=== PATIENT | female | born 1945 | race African-American/Black ===

== ENCOUNTER 2020-04-17 01:45 | Observation (INO) ==
[2020-04-17] MEDS ORDERED: DEXTROSE 50% 25 GM/50 ML SYRINGE IV ONE (02:02)
[2020-04-17] MEDS ORDERED: DEXTROSE 50% 25 GM/50 ML VIAL IV STA ×2 (02:05→03:25)
[2020-04-17] MEDS ORDERED: SODIUM CHLORIDE 0.9% 500 ML IV STA (02:15)
[2020-04-17 02:26] LABS: Basophils % 0.2 % (0.0-0.8); Eosinophils # 0.2 10*3/uL (0.0-0.87); Eosinophils % 3.6 % (0.00-10.9); Hematocrit 25.2 VOL% (35.7-47.0); Hemoglobin 7.9 GM/DL (12.0-16.0); Immature Granulocytes % 0.2 %; Immature Granulocytes Absolute 0.01 #; Lymphocytes # 0.8 10*3/uL (1.4-4.0); Lymphocytes % 16.9 % (21.3-54.2); Mean Corpuscular HGB Conc 31.3 GM/DL (32-36); Mean Corpuscular Volume 88.1 FL (87-102); Mean Platelet Volume 9.8 FL (9.6-12.0); Monocytes % 14.2 % (1.7-12.7); Neutrophils % 64.9 % (38.7-73.9); Platelet Count 156 T/CUMM (130-400); Red Blood Count 2.86 MC/CUMM (3.8-5.5); Red Cell Distribution Width 14.5 % (9.3-17.3); White Blood Count 4.4 T/CUMM (4-12)
[2020-04-17] MEDS ORDERED: DEXTROSE 50% 25 GM/50 ML SYRINGE IV STA ×2 (02:45→03:27)
[2020-04-17 02:49] LABS: Alanine Aminotransferase 31 U/L (13-56); Albumin 3.4 G/DL (3.4-5.0); Alkaline Phosphatase 74 U/L (45-117); Aspartate Amino Transferase 39 U/L (0-37); Blood Urea Nitrogen 30 MG/DL (7-18); Calcium 9.4 MG/DL (8.5-10.1); Estimated Glom Filtration Rate 35 ML/MIN; Glucose 65 MG/DL (74-106); Osmolality,Calculated 280.5 MOS/KG (273-304); Total Protein 7.8 G/DL (6.4-8.3)
[2020-04-17 03:45] LABS: Basophils % 0.2 % (0.0-0.8); Eosinophils # 0.2 10*3/uL (0.0-0.87); Eosinophils % 3.9 % (0.00-10.9); Hemoglobin 7.1 GM/DL (12.0-16.0); Immature Granulocytes % 0.2 %; Immature Granulocytes Absolute 0.01 #; Lymphocytes # 0.9 10*3/uL (1.4-4.0); Lymphocytes % 20.4 % (21.3-54.2); Mean Corpuscular HGB Conc 30.9 GM/DL (32-36); Mean Corpuscular Volume 88.5 FL (87-102); Mean Platelet Volume 9.7 FL (9.6-12.0); Monocytes % 16.7 % (1.7-12.7); Neutrophils % 58.6 % (38.7-73.9); Platelet Count 141 T/CUMM (130-400); Red Cell Distribution Width 14.5 % (9.3-17.3); White Blood Count 4.6 T/CUMM (4-12)
[2020-04-17 03:57] LABS: Bacteria,Urine Occasional /HPF (Few); Bilirubin,Urine Negative (Negative); Blood, Urine Negative (Negative); Glucose,Urine (UA) 50 mg/dL (Negative); Ketones,Urine Negative (Negative); Mucus,Urine Occasional /LPF (Occasional); Nitrite,Urine Negative (Negative); Protein,Urine Negative; RBC,Urine <1 /HPF (0-4); Squamous Epithelial Cell,Urine Occasional /HPF (0-10); Urine Appearance CLEAR (Clear); Urine Color Colorless (Yellow); Urine Specific Gravity 1.003 (1.001-1.035); Urine Urobilinogen < 2.0 EU/DL (0.2-1.0); WBC,Urine <1 /HPF (0-6)
[2020-04-17 04:09] LABS: Eosinophils 4 % (0-10); Hypochromasia 1+; Lymphocytes 20 % (20-55); Microcytosis Slight; Platelet Estimate Adequate; Segmented Neutrophils 62 % (50-85); Total Cells Counted 100
[2020-04-17] MEDS ORDERED: DEXTROSE 10% 250 ML IV ONE (04:45)
[2020-04-17] MEDS: DEXTROSE 10% 500 ML IV SCH ×2 (04:50→17:47)
[2020-04-17] MEDS ORDERED: DEXTROSE 50% 25 GM/50 ML VIAL IV PRN (05:06)
[2020-04-17] MEDS ORDERED: ONDANSETRON 4 MG/2 ML VIAL IV PRN (05:06)
[2020-04-17] MEDS ORDERED: GLUCAGON 1 MG VIAL IM PRN (05:06)
[2020-04-17] MEDS ORDERED: ACETAMINOPHEN 325 MG TABLET PO PRN (05:06)
[2020-04-17] MEDS ORDERED: DOCUSATE SODIUM 100 MG CAPSULE PO PRN (05:06)
[2020-04-17] MEDS ORDERED: DEXTROSE 50% 25 GM/50 ML SYRINGE IV PRN (05:16)
[2020-04-17] MEDS ORDERED: FUROSEMIDE 40 MG TABLET PO SCH (05:30)
[2020-04-17] MEDS ORDERED: ENOXAPARIN 40 MG/0.4 ML SYRINGE SUBCUT SCH (05:30)
[2020-04-17] MEDS ORDERED: SODIUM CHLORIDE 0.9% 1,000 ML IV PRN (05:32)
[2020-04-17] MEDS ORDERED: FUROSEMIDE 40 MG TABLET ONE (06:23)
[2020-04-17] MEDS: CLINDAMYCIN 300 MG CAPSULE PO SCH ×3 (11:00→17:40)
[2020-04-17] MEDS: ROSUVASTATIN 20 MG TABLET PO SCH (11:01)
[2020-04-17] MEDS: MAGNESIUM OXIDE 400 MG TABLET PO SCH (11:02)
[2020-04-17] MEDS: ASPIRIN EC 81 MG TABLET PO SCH (11:02)
[2020-04-18] MEDS: CLINDAMYCIN 300 MG CAPSULE PO SCH ×3 (00:47→13:14)
[2020-04-18 04:50] LABS: Basophils % 0.5 % (0.0-0.8); Eosinophils # 0.3 10*3/uL (0.0-0.87); Eosinophils % 7.2 % (0.00-10.9); Hematocrit 27.8 VOL% (35.7-47.0); Hemoglobin 8.3 GM/DL (12.0-16.0); Immature Granulocytes % 0.5 %; Immature Granulocytes Absolute 0.02 #; Lymphocytes # 1.3 10*3/uL (1.4-4.0); Lymphocytes % 31.2 % (21.3-54.2); Mean Corpuscular HGB Conc 29.9 GM/DL (32-36); Mean Corpuscular Volume 91.1 FL (87-102); Mean Platelet Volume 9.9 FL (9.6-12.0); Monocytes % 15.2 % (1.7-12.7); Neutrophils % 45.4 % (38.7-73.9); Platelet Count 141 T/CUMM (130-400); Red Blood Count 3.05 MC/CUMM (3.8-5.5); Red Cell Distribution Width 14.6 % (9.3-17.3); White Blood Count 4.1 T/CUMM (4-12)
[2020-04-18] MEDS ORDERED: FUROSEMIDE 80 MG TABLET PO SCH ×2 (05:11→09:00)
[2020-04-18 05:17] LABS: Albumin 2.9 G/DL (3.4-5.0); Bilirubin,Total 0.5 MG/DL (0.2-1.0); Calcium 8.9 MG/DL (8.5-10.1); Osmolality,Calculated 288.3 MOS/KG (273-304); Total Protein 6.7 G/DL (6.4-8.3)
[2020-04-18 05:25] LABS: Folate 11.3 NG/ML (5.4-24.0); Vitamin B12 869 PG/ML (211-911)
[2020-04-18] MEDS: DEXTROSE 10% 500 ML IV SCH (05:31)
[2020-04-18 07:25] LABS: Sedimentation Rate-Westergren 49 MM/HR (0-30)
[2020-04-18] MEDS: MAGNESIUM OXIDE 400 MG TABLET PO SCH (08:31)
[2020-04-18] MEDS: ASPIRIN EC 81 MG TABLET PO SCH (08:31)
[2020-04-18] MEDS: ROSUVASTATIN 20 MG TABLET PO SCH (08:31)
[2020-04-18] MEDS ORDERED: SODIUM POLYSTYRENE SULFATE 15 GM/60 ML BOTTLE PO ONE (09:00)
[2020-04-18 09:12] LABS: Hemoglobin A1 (Alkaline) 97.1 % (96.5-98.5); Hemoglobin A2 (Alkaline) 2.9 % (1.5-3.5)
[2020-04-18 11:52] VITALS: BP 148/61
[2020-04-19] MEDS ORDERED: FUROSEMIDE 40 MG TABLET PO SCH (09:00)
== END 2020-04-18 13:27 | disposition home or self-care (01) ==
LOC: EDUNIT# → EDBD → N.EDINP 01:45 → N.ED 01:45 → N.5E 15:09
PROVIDERS: ADMIT Internal Medicine; ATTEND Internal Medicine